=== PATIENT | female | born 1960 | race Caucasian/White ===

== ENCOUNTER 2020-06-17 15:02 | Emergency (ER) | payer BC ==
[~2020-06-17] VITALS: Ht 162.6 cm; Wt 61.8 kg
[2020-06-17 15:14] VITALS: Ht 162.6 cm; Wt 61.8 kg
[2020-06-17] MEDS ORDERED: HYDROCODON-ACE1 EA10 PO (17:57)
[2020-06-17 18:10] VITALS: BP 145/73
== END 2020-06-17 18:12 | disposition home or self-care (01) ==
LOC: D.ER 15:02
DX: S92.354A Nondisplaced fracture of fifth metatarsal bone, right foot, initial encounter for closed fracture (principal); K21.9 Gastro-esophageal reflux disease without esophagitis; X58.XXXA Exposure to other specified factors, initial encounter